=== PATIENT | female | born 1955 | race Caucasian/White ===

== ENCOUNTER 2017-07-01 12:56 | Emergency (ER) | payer MEDICAID ==
[~2017-07-01] VITALS: Ht 162.6 cm; Wt 95.3 kg
[2017-07-01 13:35] VITALS: BP 188/93
== END 2017-07-01 14:53 | disposition home or self-care (01) ==
LOC: ER 12:56
DX: S90.121A Contusion of right lesser toe(s) without damage to nail, initial encounter (principal); I10 Essential (primary) hypertension; E07.89 Other specified disorders of thyroid; Z90.49 Acquired absence of other specified parts of digestive tract; Z98.51 Tubal ligation status; Z88.1 Allergy status to other antibiotic agents; Z88.8 Allergy status to other drugs, medicaments and biological substances; W22.8XXA Striking against or struck by other objects, initial encounter; Y93.89 Activity, other specified; Y99.8 Other external cause status; Y92.89 Other specified places as the place of occurrence of the external cause
CPT/HCPCS: 73630